=== PATIENT | male | born 1990 | race Caucasian/White ===

== ENCOUNTER 2024-07-21 21:25 | Emergency (ER) | payer OTHER ==
[~2024-07-21] VITALS: Ht 167.6 cm; Wt 129.8 kg
--- NOTE | 2024-07-21 21:42 | Physician Documentation ---
History of Present Illness ~ Chief Complaint: Leg Pain Stated Complaint: CALF PAIN Time Seen by MD: 21:52 OK to notify your PCP?: Yes Source: patient Mode of Arrival: POV HPI 33-year-old male presents with left calf pain which started 3 weeks ago. He states it is worse when he is walking and at work with it. He says the pain started mid calf it was a burning sensation which then radiated up past his knee to his her Toradol left thigh which is throbbing in nature in his radiated up but is not quite made it to the knee. No history of clotting disorders in the family. No history of DVT. Full range of motion and good CSM. He does have a history of traveling in the car to and from [facility] to [place], denies any recent plane travel. Medication Reconciliation Allergies: Coded Allergies: No Known Allergies (Unverified , 07/21/24) Review of Systems All Other Systems at this time: Reviewed and Negative Physical Exam Vital Signs: RN Vital Signs have been reviewed: Yes, Temperature: 85.0, Heart Rate: 91, Respiratory Rate: 16, BP: 156/84, Pulse Oximetry: 96, Weight: 129.800 Oxygen Flow Rate: 0 Pulse Oximetry Reflects: adequate oxygenation Physical Exam General: Alert, no distress. HEENT: No injection, moist mucous membranes. Neck: Full range of motion. Respiratory: No respiratory distress, equal chest rise and fall. Chest: No accessory muscle use. Cardiovascular: Regular rate and rhythm. Gastrointestinal: Nondistended. Extremities: Normal range of motion of left leg, no deformity. Good CSM, good pulses, normal sensation of left foot. No tenderness to palpation of Achilles tendon. Neurologic: Oriented x4. Psychiatric: Normal mood and affect. Skin: Normal color, warm and dry. Progress Results/Orders Reviewed/noted all lab results: Yes Results/Orders Orders - RENETTA WEISS Vl Venous (07/21/24 21:46) Completed Orders - RENETTA WEISS Vl Venous (07/21/24 21:46) Ketorolac Trometh 30mg/Ml Vial (Toradol (07/21/24 21:50) Medications Received in ER Medications (Trade) Dose Ordered Sig/Amaury Route PRN Reason Start Time Stop Time Status Last Admin Dose Admin (Toradol inj. 30mg/ml) 30 mg ONCE ONCE IM 07/21/24 21:50 07/21/24 21:51 DC 07/21/24 21:52 30 MG Vital Signs 07/21/24 07/21/24 21:29 21:42 Temp 85.0 98.6 Pulse 91 Resp 16 B/P (MAP) 156/84 Pulse Ox 96 O2 Flow Rate 0 EKG/XRAY/CT/US/VASC/MRI Ultrasound : Impression Lower extremity venous vascular ultrasound as interpreted by me: No DVT, no soft tissue swelling, no superficial venous thrombosis. Medical Decision Making Findings 33-year-old male presents with left calf pain for the past 3 weeks. No recent travel or history of clotting disorders in his family. He states it is worse when he is on his feet and walking around at work. He describes his pain as about a 5/10 while he is at work and now when resting is much less. Venous ultrasound of the left leg was performed to rule out a DVT and none was seen. Due to the pain being localized in the calf and spreading to the upper thigh, likely musculoskeletal in nature. We discussed the discuss continues for another couple weeks he may benefit from MRI to look at the soft tissue. He does not have any pain with extension or flexion of the foot in the Achilles tendon and no pain to palpation of the Achilles tendon while he is doing range of motion of his foot and this helps to rule out any Achilles tendon rupture. He is ambulatory. For his pain we gave Toradol while here in the department, f or which he expressed relief from pain and he was discharged and told to follow up with his primary care provider in the next 3 days and return back here for any new or worsening symptoms. General Diff Dx:Considerations: Include: Contusion, Fracture, Hematoma, Neurovascular injury Additional Comment Achilles tendon rupture Departure Disposition: HOME / SELF CARE / HOMELESS Impression: Primary Impression: Calf tenderness Additional Impression: Muscle strain Discharge Instructions: RICE Therapy for Routine Care of Injuries, [id number], Muscle Strain, [id number] Additional Instructions: As discussed this is likely musculoskeletal in nature. If this continues or gets worse you may benefit from an MRI as this can see more of the soft tissue than an x-ray can. Your ultrasound was negative for DVT or superficial venous thrombosis. Can use Tylenol and/or ibuprofen for pain relief at home and a heating pad may be helpful. Referrals: NO PRIMARY CARE PROVIDER (PCP) Education Educated: Patient Educated regarding: diagnosis, treatment, prognosis, need for follow up Signature Scribe Signature: . Attestation: Scribed for Renetta Weiss Fitness Assistant by Renetta León NP . 07/21/24 22:58 RENETTA WEISSP Jul 21, 2024 21:42
[2024-07-21] MEDS: ketorolac trometh 30MG/ML vial 30 MG/ML VIAL IM ONE (21:52)
--- NOTE | 2024-07-21 22:49 | VASCULAR REPORT ---
Bilateral lower extremity venous duplex Clinical History: Left calf pain Comparison: None Technique: Duplex Doppler evaluation of the deep venous systems of both lower extremities from the common femora l veins to the popliteal veins including color Doppler and spectral/pulsed waveform analysis was perf ormed. Findings: RIGHT SIDE: The common femoral vein demonstrates appropriate compressibility and waveform variability. LEFT SIDE: The common femoral vein demonstrates appropriate compressibility and waveform variability. There is compressibility/patency of the great saphenous vein at the proximal thigh. The femoral vein demonstrates appropriate compressibility and waveform variability. The deep femoral vein demonstrates appropriate compressibility and waveform variability. The popliteal vein demonstrates appropriate compressibility and waveform variability. There is normal compressibility at the tibioperoneal trunk. Impression: No left femoropopliteal venous thrombosis.
[2024-07-21 22:57] VITALS: BP 130/78; PULSE 87; RESP 16; TEMP 98.6; O2SAT 99
== END 2024-07-21 22:58 | disposition home or self-care (01) ==
LOC: ER 21:25
DX: S86.912A Strain of unspecified muscle(s) and tendon(s) at lower leg level, left leg, initial encounter (principal); X58.XXXA Exposure to other specified factors, initial encounter; Y93.01 Activity, walking, marching and hiking; Y92.89 Other specified places as the place of occurrence of the external cause; Y99.8 Other external cause status
CPT/HCPCS: 93971; 96372; 99285; J1885